=== PATIENT | male | born 1960 | race Caucasian/White ===

== ENCOUNTER 2018-07-13 14:39 | Observation (INO) ==
[2018-07-13] MEDS ORDERED: ENOXAPARIN 100 MG/ML SYRINGE SUBCUT STA (15:07)
[2018-07-13] MEDS ORDERED: ASPIRIN 325 MG TABLET PO STA (15:07)
[2018-07-13 15:20] LABS: Basophils # 0.1 10*3/uL (0.0-0.2); Basophils % 0.6 % (0.0-0.8); Eosinophils % 0.5 % (0.00-10.9); Hematocrit 41.6 VOL% (42.0-52.0); Immature Granulocytes % 0.2 %; Immature Granulocytes Absolute 0.02 #; Lymphocytes # 1.8 10*3/uL (1.4-4.0); Mean Corpuscular HGB Conc 33.7 GM/DL (32-36); Mean Corpuscular Hemoglobin 31 PG (27-34); Mean Corpuscular Volume 91.6 FL (87-102); Mean Platelet Volume 12.6 FL (9.6-12.0); Monocytes # 0.7 10*3/uL (0.11-0.8); Monocytes % 8.3 % (1.7-12.7); Neutrophils # 5.6 10*3/uL (1.4-7.4); Neutrophils % 68.4 % (38.7-73.9); Platelet Count 134 T/CUMM (130-400); Red Blood Count 4.54 MC/CUMM (3.8-5.5); Red Cell Distribution Width 12.8 % (9.3-17.3); White Blood Count 8.2 T/CUMM (4-12)
[2018-07-13 15:49] LABS: Bilirubin,Total 0.5 MG/DL (0.2-1.0); Potassium 3.6 MMOL/L (3.5-5.1)
[2018-07-13] MEDS ORDERED: NITROGLYCERIN SL 0.4 MG TABLET SL PRN ×2 (16:06→17:12)
[2018-07-13] MEDS ORDERED: BISACODYL 5 MG TABLET PO PRN (17:08)
[2018-07-13] MEDS ORDERED: MAGNESIUM SULF RIDER 2 GM in PREMIX 1 EACH IV PRN (17:08)
[2018-07-13] MEDS ORDERED: ACETAMINOPHEN 325 MG TABLET PO PRN (17:08)
[2018-07-13] MEDS ORDERED: PROMETHAZINE 25 MG TABLET PO PRN (17:08)
[2018-07-13] MEDS ORDERED: diphenhydrAMINE CAP 25 MG CAPSULE PO PRN (17:08)
[2018-07-13] MEDS ORDERED: DOCUSATE SODIUM 100 MG CAPSULE PO PRN (17:08)
[2018-07-13] MEDS ORDERED: MAGNESIUM SULF RIDER 4 GM in PREMIX 1 EACH IV PRN (17:08)
[2018-07-13] MEDS ORDERED: ZALEPLON 5 MG CAPSULE PO PRN (17:08)
[2018-07-13] MEDS ORDERED: ONDANSETRON 4 MG/2 ML VIAL IV PRN (17:08)
[2018-07-13] MEDS ORDERED: guaiFENesin/DM ER 600-30 MG TABLET PO PRN (17:08)
[2018-07-13] MEDS ORDERED: LACTULOSE 20 GM/30 ML UDCUP PO PRN (17:08)
[2018-07-13] MEDS ORDERED: MECLIZINE 25 MG TABLET PO PRN (17:10)
[2018-07-13] MEDS ORDERED: ALUM/MAG/SIMETH/LIDO VISC 1:1 30 ML BOTTLE PO ONE (17:11)
[2018-07-13] MEDS ORDERED: PANTOPRAZOLE 40 MG VIAL IV ONE (17:11)
[2018-07-13] MEDS ORDERED: MORPHINE 4 MG/1 ML VIAL IV PRN (19:47)
[2018-07-13] MEDS: GABAPENTIN 100 MG CAPSULE PO SCH (20:47)
[2018-07-13] MEDS: ACETAMINOPHEN 325 MG TABLET PO SCH (20:47)
[2018-07-13] MEDS ORDERED: ATORVASTATIN 20 MG TABLET PO SCH (21:00)
[2018-07-13] MEDS ORDERED: FAMOTIDINE 20 MG TABLET PO SCH (21:00)
[2018-07-14 03:42] LABS: Calcium 8.5 MG/DL (8.5-10.1); Risk Ratio 3.81; Thyroid Stimulating Hormone 3.05 uIU/ml (0.358-3.74); VLDL CHOLESTEROL 22.6 MG/DL
[2018-07-14 05:33] LABS: Troponin I < 0.015 NG/ML (0.00-0.045)
[2018-07-14] MEDS ORDERED: PANTOPRAZOLE 40 MG TABLET PO SCH (09:00)
[2018-07-14] MEDS ORDERED: ASPIRIN CHEW 81 MG TABLET PO SCH (09:00)
[2018-07-14 12:07] VITALS: BP 130/68
[2018-07-14] MEDS: GABAPENTIN 100 MG CAPSULE PO SCH (14:41)
[2018-07-14] MEDS: ACETAMINOPHEN 325 MG TABLET PO SCH (14:42)
== END 2018-07-14 14:25 | disposition home or self-care (01) ==
LOC: N.EDINP 14:39 → N.ED 14:39 → N.TELES 18:09
PROVIDERS: ADMIT Internal Medicine Cardiovascular Disease; ATTEND Internal Medicine Cardiovascular Disease